=== PATIENT | male | born 1975 | race Caucasian/White ===

== ENCOUNTER 2019-10-20 17:05 | Emergency (ER) | payer OTHER ==
[~2019-10-20] VITALS: Ht 188 cm; Wt 134.6 kg
--- NOTE | 2019-10-20 18:16 | NUR ---
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
--- NOTE | 2019-10-20 18:32 | NUR ---
PT REPORTS DIARHHEA AND BODY ACHES BEGINNING THIS AM. PT DENIES, N/V/FEVERS/COUGH.
[2019-10-20] MEDS ORDERED: SODIUM CHLORIDE 0.9% 1,000ML IVBOLUS ONE (19:00)
--- NOTE | 2019-10-20 19:12 | NUR ---
Report received from EJ Alfredo. This RN to assume care. ERP in room. Patient denies IV/fluid.
[2019-10-20 19:19] VITALS: BP 133/85
--- NOTE | 2019-10-20 19:20 | NUR ---
Patient discharge instructions given. All questions and concerns addressed. Patient ambulatory with a steady gait. Belongings with patient.
== END 2019-10-20 19:22 | disposition home or self-care (01) ==
LOC: ED 18:05
DX: R19.7 Diarrhea, unspecified (principal); M79.10 Myalgia, unspecified site; F17.210 Nicotine dependence, cigarettes, uncomplicated
CPT/HCPCS: 99282; 99406